=== PATIENT | male | born 2005 | race Caucasian/White ===

== ENCOUNTER 2024-01-08 20:48 | Emergency (ER) | payer OTHER, SELFPAY ==
[2024-01-08 20:49] VITALS: BP 133/58; PULSE 72; RESP 16; TEMP 36.9; O2SAT 98; BMI 26.6
--- NOTE | 2024-01-08 21:41 | XRR_ITS ---
PROCEDURE INFORMATION: Exam: XR Chest Exam date and time: 01/08/2024 9:54 PM Age: 18 years old Clinical indication: Shortness of breath; Additional info: SOB TECHNIQUE: Imaging protocol: Radiologic exam of the chest. Views: 1 view. COMPARISON: No relevant prior studies available. FINDINGS: Lungs: Unremarkable. No consolidation. Pleural spaces: Unremarkable. No pleural effusion. No pneumothorax. Heart/Mediastinum: Unremarkable. No cardiomegaly. Bones/joints: Unremarkable. XR/XR chest 1V portable [id number] IMPRESSION: No acute findings.
--- NOTE | 2024-01-08 21:43 | ED_ITS ---
HPI - Headache 2 General: Chief Complaint: Headache Stated Complaint: Cold Sweats\Fever Time Seen by Provider: 01/08/24 21:25 Source: patient Mode of arrival: ambulatory Limitations: no limitations History of Present Illness: Patient is a 18-year-old male presenting to the emergency department complaining of bodyaches onset past few days. Patient notes that he works outside for [employer], also thinks that he recently overdid it while weed eating outside in the heat. He states that for the past few days he has had worsening nausea and vomiting, along with the body aches and chills. Also states that he feels dehydrated and has been having a bad headache. He is unable to keep anything down. States he normally drinks a lot of water, however this intake has been decreased lately due to his nausea and vomiting. He was seen at [facility] earlier today where he was prescribed Zofran and a Z-Duane, as initially he had been stating he was feeling short of breath as well. No other symptoms or concerning historical factors to report at this time. MD elicited complaint: other (Body aches/fatigue) Onset (ago): day(s) Associated symptoms: Reports nausea and vomiting; Deny chest pain, fever(s), lightheadedness or rash Treatments prior to arrival: other (Z-Duane, Zofran) Review of Systems 2 General: Reports: 10 or more systems reviewed and unremarkable except in HPI and below Const: Reports: chills, body aches, change in appetite and fatigue; Denies: fever(s) Eyes: Denies: change in vision ENMT: Denies: throat pain, ear or mastoid pain or nasal discharge Card: Denies: chest pain, palpitations, swelling of feet/ankles or lightheadedness Resp: Reports: dyspnea; Denies: productive cough or wheezing GI: Reports: nausea and vomiting; Denies: abdominal pain, diarrhea or constipation : Denies: flank pain, difficulty urinating, dysuria or urinary frequency Musc: Reports: muscle weakness; Denies: neck pain, back pain or joint pain Skin/Breast: Denies: rash Neuro: Denies: headache(s), numbness in extremities or weakness in extremities Physical Exam 2 Const: COMMON NORMALS: no acute distress, patient oriented x3 and no limitations GENERAL APPEARANCE: cooperative, comfortable and well developed ORIENTATION/CONSCIOUSNESS: Yes awake, Yes oriented to person, Yes oriented to place and Yes oriented to time HENMT: COMMON NORMALS: normocephalic, atraumatic and hearing grossly normal bilaterally HEAD & SCALP: normocephalic and atraumatic OTHER: Dry oral mucosa Eye: COMMON NORMALS: Equal, round and reactive pupils present, EOMs intact bilaterally and conjunctivae normal CONJUNCTIVA: Yes conjunctivae normal P UPIL: Yes Equal, round and reactive pupils present Neck/C-Spine: COMMON NORMALS: full ROM, supple and no JVD Resp: COMMON NORMALS: normal respiratory effort, No retractions, No use of accessory muscles and clear to auscultation bilaterally AUSCULTATION: clear to auscultation bilaterally Cardio: COMMON NORMALS: no JVD, regular rate, regular rhythm, No clicks present (Cardio), No murmurs present (Cardio) and No rub (Cardio) RATE: r egular rate RHYTHM: regular rhythm GI: COMMON NORMALS: Normal to inspection, nondistended, normoactive bowel sounds present, Soft to palpation and non-tender AUSCULTATION: Yes normoactive bowel sounds PALPATION: Yes Soft to palpation RECTAL EXAM: Yes deferred Extremity: COMMON NORMALS: normal to inspection, full ROM and capillary refill normal Neuro: COMMON NORMALS: patient oriented x3, moves all extremities, no focal motor deficits and no sensory deficits noted SENSORIUM/ORIENTATION: Yes oriented to person, Yes oriented to place and Yes oriented to time Psych: COMMON NORMALS: mental status grossly normal and Normal thought process present THOUGHT PROCESS: Normal thought process present Skin: COMMON NORMALS: no rashes or lesions noted GENERAL SKIN EXAM: no rashes or lesions noted Course 2 Vital Signs: Vital signs: Vital Signs Temperature 98.4 F 01/08/24 20:49 Pulse Rate 63 01/08/24 22:29 Respiratory Rate 18 01/08/24 22:29 Blood Pressure 115/70 01/08/24 22:29 Pulse Oximetry 97 01/08/24 22:29 Oxygen Delivery Me thod Room Air 01/08/24 22:29 MDM - Headache Medical Decision Making Patient presented with multiple days of nausea and vomiting associated with bodyaches and other signs of dehydration. He had been outside more than usual recently, specifically stating he was weed eating for too long outside in the heat. Was started on Zofran and azithromycin today at primary care. His vitals on arrival normal and overall physical examination unremarkable aside from some evidence of dehydration. His lab work was all completely unremarkable and chest x-ray was normal, he did report some shortness of breath earlier. Creatinine phosphokinase was normal. Urinalysis unremarkable. I do think patient dealing with mild case of heat exhaustion/dehydration, and he does note some improvement after receiving IV fluids and Zofran. He is to hydrate at home and continue taking his Zofran, and I did thoroughly instruct him to remain inside for the next couple of days while his body recuperates. Strict return precautions were given and he is to follow-up with primary care as needed. Lab Data 01/08/24 21:46 01/08/24 21:46 Radiology Impressions Chest X-Ray 01/08/24 21:41 IMPRESSION: No acute findings. Laboratory Results WBC 4.89 10^3/uL (4.5-13.0) 01/08/24 21:46 RBC 5.29 10^6/uL (3.85-5.65) 01/08/24 21:46 Hgb 14.70 g/dL (13.2-15.6) 01/08/24 21:46 Hct 45.3 % (37-53) 01/08/24 21:46 MCV 85.6 fl (82-101) 01/08/24 21:46 MCH 27.8 pg (27-33) 01/08/24 21:46 MCHC 32.5 g/dL (30-55) 01/08/24 21:46 RDW 13.5 % (12.1-15.1) 01/08/24 21:46 Plt Count 155 10^3/cmm (157-399) L 01/08/24 21:46 MPV 11.8 fL (7.4-10.4) H 01/08/24 21:46 Neut % (Auto) 63.2 % 01/08/24 21:46 Lymph % (Auto) 22.3 % 01/08/24 21:46 [place] % (Auto) 11.7 % 01/08/24 21:46 Eos % (Auto) 2.2 % 01/08/24 21:46 Baso % (Auto) 0.4 % 01/08/24 21:46 Neut # (Auto) 3.09 10^3/uL (1.8-8.0) 01/08/24 21:46 Lymph # (Auto) 1.1 10^3/uL (1.5-6.5) L 01/08/24 21:46 [place] # (Auto) 0.6 10^3/uL (0.2-0.9) 01/08/24 21:46 Eos # (Auto) 0.1 10^3/uL (0.0-0.8) 01/08/24 21:46 Baso # (Auto) 0.0 10^3/uL (0.0-0.1) 01/08/24 21:46 Nucleated RBC % (auto) 0 % 01/08/24 21:46 Nucleated RBCs # 0.0 /100WBC 01/08/24 21:46 Sodium 138 mmol/L (136-145) 01/08/24 21:46 Potassium 4.0 mmol/L (3.5-5.1) 01/08/24 21:46 Chloride 100 mmol/L (98-107) 01/08/24 21:46 Carbon Dioxide 25 mmol/L (22-29) 01/08/24 21:46 Anion Gap 17.0 (5-19) 01/08/24 21:46 BUN 17 mg/dL (6-20) 01/08/24 21:46 Creatinine 1.1 mg/dL (0.7-1.2) 01/08/24 21:46 GFR Calculation 86.2 mL/min (90-130) L 01/08/24 21:46 Glucose 108 mg/dL (65-115) 01/08/24 21:46 Calculated Osmolality 288 mOsm/kg (285-295) 01/08/24 21:46 Calcium 9.0 mg/dL (8.5-10.5) 01/08/24 21:46 Total Bilirubin 0.4 mg/dL (0.15-1.2) 01/08/24 21:46 AST 16 U/L (0-40) 01/08/24 21:46 ALT 18 U/L (0-41) 01/08/24 21:46 Alkaline Phosphatase 74 U/L (40-130) 01/08/24 21:46 Creatine Kinase 74 U/L (39-308) 01/08/24 21:46 Total Protein 7.2 g/dL (6.6-8.7) 01/08/24 21:46 Albumin 4.2 g/dL (3.5-5.2) 01/08/24 21:46 Globulin 3.0 g/dL (1.3-4.6) 01/08/24 21:46 Urine Color Yellow (Yellow) 01/08/24 22:27 Urine Appearance Clear (CLEAR) 01/08/24 22:27 Urine pH 5 (5-7) 01/08/24 22:27 Ur Specific [place] 1.020 (1.005-1.030) 01/08/24 22:27 Urine Protein Neg (Negative) 01/08/24 22:27 Urine Glucose (UA) Norm (Normal) 01/08/24 22:27 Urine Ketones 1+ (Negative) H 01/08/24 22:27 Urine Blood Neg (Negative) 01/08/24 22:27 Urine Nitrate Negative (Negative) 01/08/24 22:27 Urine Bilirubin 1+ (Negative) H 01/08/24 22:27 Urine Urobilinogen 1 mg/dL (Negative) H 01/08/24 22:27 Ur Leukocyte Esterase Negative (Negative) 01/08/24 22:27 All radiology interpretation(s) finalized by discharge Discharge Plan Discharge Patient Disposition: Home Clinical Impression: Heat exhaustion Condition: Stable Discharge Orders: Discharge ED (Routine); Ordered 01/08/24 Ordered By: Lalo Santillan Discharge Diet: As Directed Discharge Activity: Increase activity as tolerated Patient Instructions: Dehydration (ED), Heat Exhaustion (ED) Activity Restrictions/Additional Instructions: Plenty of fluids as discussed. Take Zofran for nausea that you already have at home. Avoid any excess heat exposure over the next couple of days as your body recuperates. Please follow-up with primary care and return with any new or worsening symptoms. Coding Level of Care Code ED Halver Machine Operator for Vandana Geller
[2024-01-08 21:49] VITALS: BP 115/70; PULSE 73; RESP 18; O2SAT 96
[2024-01-08 21:54] LABS: Basophils % 0.4 %; Eosinophils # 0.1 10^3/uL (0.0-0.8); Eosinophils % 2.2 %; Hematocrit 45.3 % (37-53); Lymphocytes # 1.1 10^3/uL (1.5-6.5); Lymphocytes % 22.3 %; Mean Corpuscular HGB Conc 32.5 g/dL (30-55); Mean Corpuscular Hemoglobin 27.8 pg (27-33); Mean Corpuscular Volume 85.6 fl (82-101); Mean Platelet Volume 11.8 fL (7.4-10.4); Monocytes # 0.6 10^3/uL (0.2-0.9); Monocytes % 11.7 %; Neutrophils # 3.09 10^3/uL (1.8-8.0); Neutrophils % 63.2 %; Nucleated Red Blood Cells % 0 %; Platelet Count 155 10^3/cmm (157-399); Red Blood Count 5.29 10^6/uL (3.85-5.65); Red Cell Distribution Width 13.5 % (12.1-15.1); White Blood Count 4.89 10^3/uL (4.5-13.0)
[2024-01-08 22:12] LABS: Alanine Aminotransferase 18 U/L (0-41); Albumin Level 4.2 g/dL (3.5-5.2); Alkaline Phosphatase 74 U/L (40-130); Aspartate Amino Transferase 16 U/L (0-40); Blood Urea Nitrogen 17 mg/dL (6-20); Carbon Dioxide 25 mmol/L (22-29); Chloride 100 mmol/L (98-107); Creatine Phosphokinase 74 U/L (39-308); Creatinine Clr Calc Pharmacy 114.7037; Glomerular Filtration Rate 86.2 mL/min (90-130); Glucose 108 mg/dL (65-115); Osmolality Calculated 288 mOsm/kg (285-295); Sodium 138 mmol/L (136-145); Total Bilirubin 0.4 mg/dL (0.15-1.2); Total Protein 7.2 g/dL (6.6-8.7)
[2024-01-08] MEDS: sodium chloride 0.9% 1,000 ML 999 ML IV (22:28)
[2024-01-08 22:29] VITALS: BP 115/70; PULSE 63; RESP 18; O2SAT 97
[2024-01-08] MEDS: ondansetron 2 mg/ML SDV 2 mL 4 MG IVP (22:29)
[2024-01-08 22:34] LABS: Add Urine Microscopic? NO; Charge for UA Resulting for Rev
[2024-01-08 22:48] LABS: Bilirubin Urine 1+ (Negative); Blood Urine Neg (Negative); Glucose Urine UA Norm (Normal); Ketones Urine 1+ (Negative); Leukocyte Esterase Urine Negative (Negative); Nitrate Urine Negative (Negative); Protein Urine Neg (Negative); Urine Appearance Clear (CLEAR); Urine Color Yellow (Yellow); Urobilinogen Urine 1 mg/dL (Negative); pH Urine 5 (5-7)
== END 2024-01-08 23:44 | disposition home or self-care (01) ==
PROVIDERS: Emergency Provider Physician Assistant
DX: T67.5XXA Heat exhaustion, unspecified, initial encounter (principal); X30.XXXA Exposure to excessive natural heat, initial encounter
CPT/HCPCS: 71045; 80053; 81003; 82550; 85025; 96361; 96374; 99284; J2405; J7030

== ENCOUNTER → 2024-03-04 18:45 | Outpatient (BNVA) | payer OTHER, SELFPAY | PROVIDERS: Visit Provider Nurse Practitioner | DX: J02.9 Acute pharyngitis, unspecified (principal) | CPT/HCPCS: 87880 ==

== ENCOUNTER 2024-03-07 09:52 | Emergency (ER) | payer OTHER, SELFPAY ==
[2024-03-07 10:12] VITALS: BP 123/73; PULSE 98; RESP 18; TEMP 37.4; O2SAT 98; BMI 26.6
--- NOTE | 2024-03-07 11:25 | ED_ITS ---
HPI - Ear Problem General: Chief complaint: Ear Stated complaint: earache Time Seen by Provider: 03/07/24 10:33 Source: patient Mode of arrival: ambulatory Limitations: no limitations History of Present Illness: Patient is a 19-year-old male presents to ED today with a complaint of bilateral ear pain. Patient states he was diagnosed with strep throat last week and placed on amoxicillin 500 mg twice daily x 10 days. Patient states he still has several days of this antibiotic left. He states several days ago he began developing bilateral ear pain worse when he swallows. He feels like pressure b ehind his ears. He has not noticed any drainage from the ear. He feels like his throat overall is improving but still having some discomfort when he swallows. MD Complaint: ear pain Location: bilateral Duration: constant Severity: moderate Exacerbating factors: chewing and other (swallowing) Context: recent illness (strep throat last week) Discharge from ear: no Associated symptoms: Reports no associated symptoms and ear or mastoid pain; Denies fever(s), headache(s), neck pain or tinnitus Treatment prior to arrival: other (abx for his strep throat) Related Data Previous Rx's Medication Instructions Recorded amoxicillin 500 mg tablet 500 mg PO BID 10 days #20 tabs 03/04/24 Allergies Allergy/AdvReac Type Severity Reaction Status Date / Time No Known Drug Allergies Allergy Unknown Verified 03/04/24 18:39 Review of Systems Const: Denies: fever(s), chills, body aches, fatigue or malaise ENMT: Reports: throat pain, odynophagia and ear or mastoid pain; Denies: hoarseness, mouth pain, swelling of lips/tongue, oral sores, change in hearing, tinnitus, disequilibrium, nasal discharge, nasal congestion or sinus pain Card: Denies: chest pain Resp: Denies: dyspnea GI: Denies: nausea or vomiting Musc: Denies: neck pain, back pain, extremity pain or joint pain Skin/Breast: Denies: rash Neuro: Denies: headache(s) PFS ED PFSH: Social History Smoking and tobacco/nicotine status: unknown if used tobacco/nicotine Physical Exam Const: COMMON NORMALS: no acute distress, average body habitus, patient oriented x3, no limitations, healthy appearing, alert and well nourished GENERAL APPEARANCE: cooperative ORIENTATION/CONSCIOUSNESS: Yes awake, Yes oriented to person, Yes oriented to place and Yes oriented to time HENMT: COMMON NORMALS: external ears normal, EAC's normal and Normal external nose present FACE & SINUS: normal facial exam NOSE: Normal external nose present EXTERNAL EAR: Yes external ears normal, Yes mastoids normal and Yes no periauricular adenopathy EXTERNAL AUDITORY CANAL: EAC's normal TYMPANIC MEMBRANE: TM abnormal TM laterality: bilateral with fluid behind the TM MOUTH: Normal oral and palatal mucosa present and lip normal THROAT: posterior oropharynx normal and abnormal tonsil bilateral exudates Eye: GENERAL EYE: appearance normal, both eyes and all related structures Neck/C-Spine: COMMON NORMALS: no lymphadenopathy GENERAL: No anterior neck swelling and No submandibular swelling Resp: COMMON NORMALS: normal respiratory effort Neuro: COMMON NORMALS: patient oriented x3 SENSORIUM/ORIENTATION: Yes alert, Yes oriented to person, Yes oriented to place and Yes oriented to time Course Vital Signs: Vital signs: Vital Signs Temperature 99.3 F 03/07/24 10:12 Pulse Rate 98 03/07/24 10:12 Respiratory Rate 18 03/07/24 10:12 Blood Pressure 123/73 03/07/24 10:12 Pulse Oximetry 98 03/07/24 10:12 Oxygen Delivery Me thod Room Air 03/07/24 10:12 MDM - Ear Medical Decision Making Discussed with patient conservative option/therapies for treatment of his serous otitis media. Ultimately this should resolve with time. He can follow-up with primary care later this week/early next week if symptoms persist. Recommend finishing his entire antibiotic course. Medical Records I reviewed the patient's medical records. No radiology studies performed this visit Discharge Plan Discharge Patient Disposition: Home Clinical Impression: Acute serous otitis media Qualifiers: Laterality: bilateral Recurrence: non-recurrent Qualified Code(s): H65.03 - Acute serous otitis media, bilateral Condition: Stable Prescriptions: No Action amoxicillin 500 mg tablet 500 mg PO BID 10 Days Qty: 20 0RF Discharge Orders: Discharge ED (Routine); Ordered 03/07/24 Ordered By: Ivonne Jean Baptiste Patient Instructions: Fluid In The Ear (Serous Otitis Media) (ED) Coding Level of Care Code ED Kerrick Kleaner Operator for Vandana Geller
[2024-03-07 11:42] VITALS: BP 131/76; PULSE 88; O2SAT 98
== END 2024-03-07 11:43 | disposition home or self-care (01) ==
PROVIDERS: Emergency Provider Physician Assistant
DX: H65.03 Acute serous otitis media, bilateral (principal)
CPT/HCPCS: 99281